=== PATIENT | female | born 1955 | race African-American/Black ===

== ENCOUNTER 2017-04-18 09:07 | Emergency (ER) | payer MEDICARE, OTHER ==
[~2017-04-18] VITALS: Ht 167.6 cm; Wt 85.0 kg
[~2017-04-18 09:07] MED LIST: ASPI-1159 PO; GLYB5TAB7 PO; LOVA20TA2 PO; METF10002 PO
[2017-04-18] MEDS ORDERED: IBUPROFEN 400MG TABLET PO ONE (11:00)
[2017-04-18 13:04] VITALS: BP 138/72
== END 2017-04-18 13:06 | disposition home or self-care (01) ==
LOC: ER 10:44
DX: S20.211A Contusion of right front wall of thorax, initial encounter (principal); E11.9 Type 2 diabetes mellitus without complications; I25.10 Atherosclerotic heart disease of native coronary artery without angina pectoris; Z79.82 Long term (current) use of aspirin; Z95.0 Presence of cardiac pacemaker; W01.0XXA Fall on same level from slipping, tripping and stumbling without subsequent striking against object, initial encounter; Y93.E1 Activity, personal bathing and showering; Y92.89 Other specified places as the place of occurrence of the external cause; Y99.8 Other external cause status
CPT/HCPCS: 71101; 99284

== ENCOUNTER 2017-12-10 13:31 | Emergency (ER) | payer MEDICARE, MEDICAID ==
[~2017-12-10] VITALS: Ht 167.6 cm; Wt 70.0 kg
[2017-12-10] MEDS ORDERED: ACETAMINOPHEN 325MG TABLET PO ONE (14:00)
[2017-12-10 16:27] LABS: BASOPHILS % 1.3 % (0.0-2.0); EOSINOPHILS % 2.7 % (0.0-5.0); HEMATOCRIT. 29.6 % (36.0-48.0); HEMOGLOBIN. 9.4 g/dL (12.0-16.0); MEAN CORPUSCULAR HEMOGLOBIN 20.4 pg (28.0-32.0); MEAN CORPUSCULAR VOLUME 64.7 fL (81.0-99.0); MEAN PLATELET VOLUME 9.1 fl (7.4-10.4); MONOCYTES % 11.5 % (2.0-8.0); NEUTROPHILS % 50.5 % (40.0-76.0); PLATELET 362 x1000/uL (130-400); RED BLOOD CELL COUNT 4.57 mill/uL (4.2-5.4); RED CELL DISTRIBUTION WIDTH 18.6 % (11.6-14.6)
[2017-12-10 16:30] LABS: CHLORIDE 100 mEq/L (98-107)
[2017-12-10 17:02] LABS: PLATELET ESTIMATE NORMAL
[2017-12-10 17:25] VITALS: BP 172/76
== END 2017-12-10 17:33 | disposition home or self-care (01) ==
LOC: ER 13:57
DX: M54.2 Cervicalgia (principal); R07.81 Pleurodynia; E11.9 Type 2 diabetes mellitus without complications; I25.10 Atherosclerotic heart disease of native coronary artery without angina pectoris; Z79.82 Long term (current) use of aspirin; Z95.0 Presence of cardiac pacemaker
CPT/HCPCS: 36415; 71101; 80053; 83690; 85025; 99285

== ENCOUNTER 2023-03-19 11:36 | Emergency (ER) | payer MEDICARE, OTHER ==
[~2023-03-19] VITALS: Ht 167.6 cm; Wt 80.0 kg
[~2023-03-19 11:36] MED LIST changes: -ASPI-1159 PO; +ASPI-1497 PO; +METF-416 PO; -METF10002 PO
[2023-03-19 11:43] VITALS: BP 159/75; TEMP 98.2; O2SAT 99
[2023-03-19 11:46] VITALS: PULSE 68
[2023-03-19] MEDS ORDERED: CYCL5TAB MT (12:55)
== END 2023-03-19 13:20 | disposition home or self-care (01) ==
LOC: ER 11:36
DX: M25.512 Pain in left shoulder (principal); E11.9 Type 2 diabetes mellitus without complications; I10 Essential (primary) hypertension; Z95.0 Presence of cardiac pacemaker
CPT/HCPCS: 99283

== ENCOUNTER 2023-11-03 13:45 | Emergency (ER) | payer MEDICARE, OTHER ==
[~2023-11-03] VITALS: Ht 167.6 cm; Wt 80.0 kg
[~2023-11-03 13:45] MED LIST changes: +CYCL5TAB MT
[2023-11-03 14:03] VITALS: O2SAT 100
[2023-11-03 14:26] LABS: BASOPHILS % 1.1 % (0.0-2.0); DIFFERENTIAL COMMENT 0; EOSINOPHILS % 3.4 % (0.0-5.0); HEMOGLOBIN. 11.4 g/dL (12.0-16.0); LYMPHOCYTES % 43.8 % (20.0-50.0); MEAN CORPUSCULAR HEMOGLOBIN 22.7 pg (28.0-32.0); MEAN CORPUSCULAR HGB CONC 31.6 g/dL (31.0-37.0); MEAN PLATELET VOLUME 8.8 fl (7.4-10.4); MONOCYTES % 8.7 % (2.0-8.0); PLATELET 243 x1000/uL (130-400); RED BLOOD CELL COUNT 4.99 mill/uL (4.2-5.4); RED CELL DISTRIBUTION WIDTH 16.6 % (11.6-14.6); WHITE BLOOD COUNT 6.6 x1000/uL (4.5-11.0)
[2023-11-03 14:32] LABS: CHLORIDE 101 mEq/L (98-107); POTASSIUM 4.7 mEq/L (3.5-5.1); SODIUM 135 mEq/L (136-145)
[2023-11-03 14:33] LABS: CALCIUM 9.2 mg/dL (8.7-10.4); CARBON DIOXIDE 28 mEq/L (21-32)
[2023-11-03] MEDS: MAGNESIUM/ALUMINUM HYDROXIDE/SIMETHICONE 30ML UDC PO STA (14:35)
[2023-11-03 14:38] LABS: CREATININE 0.8 mg/dL (0.6-1.0); GLUCOSE 145 mg/dL (70-105); UREA NITROGEN BLOOD 9 mg/dL (9-23)
[2023-11-03 14:40] LABS: ALANINE AMINOTRANSFERASE 43 IU/L (10-49); ALBUMIN 4.6 g/dL (3.2-4.8); ASPARTATE AMINOTRANSFERASE 33 IU/L (<34); BILIRUBIN TOTAL 0.3 mg/dL (0.1-1.0); PROTEIN TOTAL 8.9 g/dL (6.0-8.3)
[2023-11-03 15:17] LABS: TROPONIN I HIGH SENSITIVITY < 4 ng/L (3.0-34)
[2023-11-03 15:30] VITALS: BP 174/77; PULSE 65; RESP 17
[2023-11-03 15:38] VITALS: TEMP 98.2
[2023-11-03] MEDS: ACETAMINOPHEN 325MG TABLET PO STA (15:38)
[2023-11-03] MEDS: FAMOTIDINE 20MG TABLET PO ONE (15:38)
[2023-11-03 16:28] LABS: CLARITY URINE CLEAR (CLEAR); COLOR URINE YELLOW (YELLOW); GLUCOSE URINE TRACE (NEGATIVE); KETONES URINE NEGATIVE (NEGATIVE); LEUKOCYTE ESTERASE URINE TRACE (NEGATIVE); NITRITE URINE NEGATIVE (NEGATIVE); OCCULT BLOOD URINE NEGATIVE (NEGATIVE); PROTEIN URINE NEGATIVE (NEGATIVE); SPECIFIC GRAVITY URINE 1.008 (1.005-1.030)
[2023-11-03 16:47] LABS: BACTERIA URINE TRACE; RBC URINE 0-2 /hpf (0-2); SQUAMOUS EPITHELIAL CELL URINE FEW /lpf (RARE/1+); WBC URINE 0-2 /hpf (0-2)
== END 2023-11-03 18:50 | disposition home or self-care (01) ==
LOC: ER 14:31
DX: R10.11 Right upper quadrant pain (principal); E11.9 Type 2 diabetes mellitus without complications; I10 Essential (primary) hypertension; Z95.0 Presence of cardiac pacemaker
CPT/HCPCS: 36415; 76705; 80053; 81003; 84484; 85025; 93005; 99284